=== PATIENT | male | born 1965 | race Caucasian/White ===

== ENCOUNTER 2018-03-24 17:21 | Inpatient (IN) | payer MEDICAID ==
[~2018-03-24] VITALS: Ht 182.9 cm; Wt 101.3 kg
[~2018-03-24 17:21] MED LIST: BENZ1TAB10 PO; BUPR-93 PO; BUSP15 PO; CARB200T6 PO; OLAN10TA3 PO
[2018-03-24 19:41] VITALS: BP 139/93
[2018-03-24] MEDS: BENZTROPINE MESYLATE 1 MG TABLET PO SCH (21:15)
[2018-03-24] MEDS: BuPROPion HCL XL 150 MG ER TABLET PO SCH (21:15)
[2018-03-24] MEDS: BusPIRone HCL 15 MG TABLET PO SCH (21:15)
[2018-03-24] MEDS: OLANZapine 10 MG TABLET PO SCH (21:15)
[2018-03-24] MEDS ORDERED: -PHARMACY VACCINE NOTE- MISC ONE (22:15)
[2018-03-25 06:47] VITALS: BP 132/77
[2018-03-25 08:13] LABS: BASOPHILS % (AUTO) 0.4 % (0.0-2.0); EOSINOPHILS % (AUTO) 1.2 % (1.0-6.0); HEMATOCRIT 38.3 % (41-53); HEMOGLOBIN 13.4 g/dL (13.5-17.5); LYMPHOCYTES # (AUTO) 1.2 K/uL (1.0-4.8); LYMPHOCYTES % (AUTO) 15.5 % (22.0-44.0); MEAN CORPUSCULAR HEMOGLOBIN 32.3 pg (26.0-34.0); MEAN CORPUSCULAR HGB CONC 35.1 G/dL (31.0-37.0); MEAN CORPUSCULAR VOLUME 92 fL (80-100); MONOCYTES # (AUTO) 0.6 K/uL (0.1-1.0); MONOCYTES % (AUTO) 7.9 % (2.0-9.0); NEUTROPHILS # (AUTO) 5.7 K/uL (1.8-7.7); PLATELET COUNT (AUTO) 291 K/uL (150-450); RED BLOOD CELL COUNT(AUTO) 4.17 MIL/uL (4.50-5.90); RED CELL DISTRIBUTION WIDTH 15.6 % (11.5-14.5)
[2018-03-25 08:17] LABS: HEMOGLOBIN A1C 5.4 % (4.5-6.2)
[2018-03-25 08:18] VITALS: BP 124/73
[2018-03-25] MEDS: BusPIRone HCL 15 MG TABLET PO SCH ×2 (08:29→16:45)
[2018-03-25] MEDS: BuPROPion HCL XL 150 MG ER TABLET PO SCH (08:29)
[2018-03-25] MEDS: BENZTROPINE MESYLATE 1 MG TABLET PO SCH (08:29)
[2018-03-25 08:37] LABS: ALANINE AMINOTRANSFERASE 81 U/L (12-78); ALBUMIN 3.2 g/dL (3.4-5.0); ALKALINE PHOSPHATASE 82 U/L (46-116); ANION GAP 14 mmol/L (8-16); ASPARTATE AMINOTRANSFERASE 104 U/L (15-37); BILIRUBIN,TOTAL 1.1 mg/dL (0.1-1.0); CALCIUM, TOTAL 8.8 mg/dL (8.8-10.5); CARBON DIOXIDE 27 mmol/L (22-29); CHLORIDE 93 mmol/L (98-107); CHOL/HDL RATIO 3.9 (4.2-7.3); CHOLESTEROL 193 mg/dL (131-200); CREATININE 0.83 mg/dL (0.60-1.30); GLOMERULAR FILTR. RATE CALC > 60 mL/min (>60); GLUCOSE,RANDOM 84 mg/dL (70-110); HDL CHOLESTEROL 50 mg/dL (40-60); LDL CHOL (CALC.) 128 mg/dL (0-130); SODIUM SERUM 134 mmol/L (136-145); THYROID STIMULATING HORMONE 0.94 uIU/mL (0.36-3.74); TOTAL PROTEIN, SERUM 6.8 g/dL (6.4-8.2); TRIGLYCERIDES 77 mg/dL (15-150); UREA NITROGEN, BLOOD 18 mg/dL (7-18)
[2018-03-25 08:41] LABS: POTASSIUM 2.3 mmol/L (3.5-5.1)
[2018-03-25] MEDS ORDERED: POTASSIUM CHLORIDE 20 MEQ ER TABLET PO ONE ×2 (08:45→17:00)
[2018-03-25 16:36] VITALS: BP 134/87
[2018-03-25] MEDS: LORazepam 2 MG TABLET PO PRN (16:45)
[2018-03-25] MEDS: OLANZapine 10 MG TABLET PO SCH (21:07)
[2018-03-25] MEDS: ZOLPIDEM TARTRATE 10 MG TABLET PO PRN (21:07)
[2018-03-26 04:42] VITALS: BP 131/84
[2018-03-26 08:15] VITALS: BP 113/65
[2018-03-26] MEDS: BusPIRone HCL 15 MG TABLET PO SCH ×2 (08:33→16:47)
[2018-03-26] MEDS: BENZTROPINE MESYLATE 1 MG TABLET PO SCH (08:33)
[2018-03-26] MEDS: BuPROPion HCL XL 150 MG ER TABLET PO SCH (08:33)
[2018-03-26] MEDS: HALOPERIDOL 5 MG TABLET PO PRN ×2 (10:20→16:48)
[2018-03-26] MEDS: LORazepam 2 MG TABLET PO PRN ×2 (10:20→16:48)
[2018-03-26 16:29] VITALS: BP 110/76
[2018-03-26] MEDS: ZOLPIDEM TARTRATE 10 MG TABLET PO PRN (20:21)
[2018-03-26] MEDS: OLANZapine 10 MG TABLET PO SCH (20:21)
[2018-03-27 04:56] VITALS: BP 133/61
[2018-03-27 08:13] VITALS: BP 125/74
[2018-03-27] MEDS: BENZTROPINE MESYLATE 1 MG TABLET PO SCH (09:06)
[2018-03-27] MEDS: BusPIRone HCL 15 MG TABLET PO SCH ×2 (09:07→17:03)
[2018-03-27] MEDS: BuPROPion HCL XL 150 MG ER TABLET PO SCH (09:07)
[2018-03-27] MEDS: LORazepam 2 MG TABLET PO PRN (13:53)
[2018-03-27] MEDS: HALOPERIDOL 5 MG TABLET PO PRN (13:53)
[2018-03-27 16:17] VITALS: BP 145/83
[2018-03-27] MEDS: OLANZapine 10 MG TABLET PO SCH (20:32)
[2018-03-27] MEDS: ZOLPIDEM TARTRATE 10 MG TABLET PO PRN (22:50)
[2018-03-28 04:36] VITALS: BP 145/86
[2018-03-28 08:06] VITALS: BP 134/85
[2018-03-28] MEDS: HALOPERIDOL 5 MG TABLET PO PRN (08:31)
[2018-03-28] MEDS: LORazepam 2 MG TABLET PO PRN ×2 (08:31→16:21)
[2018-03-28] MEDS: BENZTROPINE MESYLATE 1 MG TABLET PO SCH (08:31)
[2018-03-28] MEDS: BusPIRone HCL 15 MG TABLET PO SCH ×2 (08:31→16:21)
[2018-03-28] MEDS: BuPROPion HCL XL 150 MG ER TABLET PO SCH (08:31)
[2018-03-28] MEDS: PALIPERIDONE 3 MG ER TABLET PO SCH (12:34)
[2018-03-28 16:03] VITALS: BP 142/82
[2018-03-28] MEDS: OLANZapine 10 MG TABLET PO SCH (20:24)
[2018-03-28] MEDS: ZOLPIDEM TARTRATE 10 MG TABLET PO PRN (20:24)
[2018-03-29 05:20] VITALS: BP 135/82
[2018-03-29 08:25] VITALS: BP 133/75
[2018-03-29] MEDS: BuPROPion HCL XL 150 MG ER TABLET PO SCH (08:37)
[2018-03-29] MEDS: BusPIRone HCL 15 MG TABLET PO SCH ×2 (08:38→16:30)
[2018-03-29] MEDS: PALIPERIDONE 3 MG ER TABLET PO SCH (08:38)
[2018-03-29] MEDS: LORazepam 2 MG TABLET PO PRN ×3 (12:28→20:31)
[2018-03-29] MEDS: HALOPERIDOL 5 MG TABLET PO PRN ×2 (12:28→16:30)
[2018-03-29 16:43] VITALS: BP 154/87
[2018-03-29] MEDS: OLANZapine 10 MG TABLET PO SCH (20:29)
[2018-03-29] MEDS: ZOLPIDEM TARTRATE 10 MG TABLET PO PRN (20:31)
[2018-03-30 06:33] VITALS: BP 121/78
[2018-03-30 08:12] VITALS: BP 140/76
[2018-03-30] MEDS: PALIPERIDONE 3 MG ER TABLET PO SCH (08:18)
[2018-03-30] MEDS: BusPIRone HCL 15 MG TABLET PO SCH ×2 (08:18→16:58)
[2018-03-30] MEDS: BuPROPion HCL XL 150 MG ER TABLET PO SCH (08:18)
[2018-03-30] MEDS: LORazepam 2 MG TABLET PO PRN ×2 (10:02→16:58)
[2018-03-30] MEDS: HALOPERIDOL 5 MG TABLET PO PRN ×2 (10:02→16:58)
[2018-03-30 16:19] VITALS: BP 126/76
[2018-03-30] MEDS: OLANZapine 10 MG TABLET PO SCH (20:19)
[2018-03-31 05:21] VITALS: BP 122/81
[2018-03-31 08:22] VITALS: BP 123/62
[2018-03-31] MEDS: BuPROPion HCL XL 150 MG ER TABLET PO SCH (08:44)
[2018-03-31] MEDS: BusPIRone HCL 15 MG TABLET PO SCH ×2 (08:44→17:18)
[2018-03-31] MEDS: PALIPERIDONE 3 MG ER TABLET PO SCH (08:44)
[2018-03-31] MEDS: LORazepam 2 MG TABLET PO PRN ×3 (08:45→21:27)
[2018-03-31] MEDS: OLANZapine 7.5 MG TABLET PO SCH ×2 (09:56→17:18)
[2018-03-31 16:09] VITALS: BP 139/95
[2018-03-31] MEDS: ZOLPIDEM TARTRATE 10 MG TABLET PO PRN (21:27)
[2018-03-31 21:31] VITALS: BP 132/88
[2018-04-01 04:02] VITALS: BP 127/78
[2018-04-01 08:14] VITALS: BP 118/80
[2018-04-01] MEDS: BusPIRone HCL 15 MG TABLET PO SCH ×2 (09:05→17:07)
[2018-04-01] MEDS: BuPROPion HCL XL 150 MG ER TABLET PO SCH (09:05)
[2018-04-01] MEDS: LORazepam 2 MG TABLET PO PRN ×4 (09:05→21:12)
[2018-04-01] MEDS: PALIPERIDONE 3 MG ER TABLET PO SCH (09:05)
[2018-04-01] MEDS: OLANZapine 7.5 MG TABLET PO SCH ×2 (09:20→17:07)
[2018-04-01 16:29] VITALS: BP 125/88
[2018-04-01] MEDS: ZOLPIDEM TARTRATE 10 MG TABLET PO PRN (21:12)
[2018-04-02 06:07] VITALS: BP 124/79
[2018-04-02] MEDS: BusPIRone HCL 15 MG TABLET PO SCH ×2 (08:04→17:09)
[2018-04-02] MEDS: PALIPERIDONE 3 MG ER TABLET PO SCH (08:04)
[2018-04-02] MEDS: OLANZapine 7.5 MG TABLET PO SCH ×2 (08:04→17:10)
[2018-04-02] MEDS: BuPROPion HCL XL 150 MG ER TABLET PO SCH (08:04)
[2018-04-02 08:18] VITALS: BP 124/70
[2018-04-02 16:05] VITALS: BP 127/84
[2018-04-02] MEDS: LORazepam 2 MG TABLET PO PRN (17:11)
[2018-04-02] MEDS: ZOLPIDEM TARTRATE 10 MG TABLET PO PRN (23:03)
[2018-04-03 06:28] VITALS: BP 126/82
[2018-04-03] MEDS ORDERED: PALI3 PO (07:55)
[2018-04-03] MEDS ORDERED: OLAN7.5T2 PO (07:56)
[2018-04-03] MEDS: OLANZapine 7.5 MG TABLET PO SCH (08:11)
[2018-04-03] MEDS: BusPIRone HCL 15 MG TABLET PO SCH (08:12)
[2018-04-03] MEDS: BuPROPion HCL XL 150 MG ER TABLET PO SCH (08:12)
[2018-04-03] MEDS: PALIPERIDONE 3 MG ER TABLET PO SCH (08:12)
[2018-04-03 08:27] VITALS: BP 140/77
== END 2018-04-03 10:00 | disposition home or self-care (01) | DRG 750 ==
LOC: B3A 20:16
PROVIDERS: ADMIT Psychiatry & Neurology Psychiatry; ATTEND Psychiatry & Neurology Psychiatry
DX: F25.1 Schizoaffective disorder, depressive type (principal); E78.5 Hyperlipidemia, unspecified; F10.20 Alcohol dependence, uncomplicated; D64.9 Anemia, unspecified; F19.90 Other psychoactive substance use, unspecified, uncomplicated; Z79.899 Other long term (current) drug therapy; Z88.0 Allergy status to penicillin
CPT/HCPCS: 83036; 84132; 84439; 84443

== ENCOUNTER 2021-05-30 03:27 | Inpatient (IN) | payer MEDICAID ==
[~2021-05-30] VITALS: Ht 182.9 cm; Wt 119.3 kg
[~2021-05-30 03:27] MED LIST changes: -BENZ1TAB10 PO; -CARB200T6 PO; -OLAN10TA3 PO; +OLAN7.5T22 PO; +PALI3TAB14 PO
[2021-05-30] MEDS ORDERED: BENZ1TAB10 PO (04:50)
[2021-05-30] MEDS ORDERED: OLAN10TA74 PO (13:44)
[2021-05-31 01:13] VITALS: BP 112/84
[2021-05-31] MEDS: ZOLPIDEM TARTRATE 10 MG TABLET PO PRN (01:41)
[2021-05-31] MEDS ORDERED: PNEUMOCOCCAL VACCINE POLYVALENT 0.5 ML VIAL [PPSV23] IM. ONE (04:30)
[2021-05-31] MEDS ORDERED: LOPERAMIDE HCL 2 MG CAPSULE PO PRN (07:15)
[2021-05-31] MEDS ORDERED: DOCUSATE SODIUM 100 MG CAPSULE PO PRN (07:15)
[2021-05-31] MEDS ORDERED: CloNIDine HCL 0.1 MG TABLET PO PRN (07:15)
[2021-05-31] MEDS ORDERED: NICOTINE 14 MG/24 HOUR PATCH TD PRN (07:15)
[2021-05-31] MEDS ORDERED: GuaiFENesin/D-METHORPHAN [SUGAR-FREE] 200-20MG/10 ML SYRUP UDCUP PO PRN (07:15)
[2021-05-31] MEDS ORDERED: MAG HYDROX/AL HYDROX/SIMETH ES 30 ML SUSPENSION UDCUP PO PRN (07:15)
[2021-05-31] MEDS ORDERED: PETROLATUM,WHITE 28 GM JELLY TP PRN (07:15)
[2021-05-31] MEDS ORDERED: IBUPROFEN 400 MG TABLET PO PRN (07:15)
[2021-05-31] MEDS ORDERED: MAGNESIUM HYDROXIDE SUSPENSION 30 ML UDCUP PO PRN (07:15)
[2021-05-31] MEDS ORDERED: ALBUTEROL SULFATE HFA 90 MCG/PUFF 8 GM INHALER IH PRN (07:15)
[2021-05-31] MEDS ORDERED: ACETAMINOPHEN 325 MG TABLET PO PRN (07:15)
[2021-05-31] MEDS ORDERED: ONDANSETRON HCL 4 MG TABLET PO PRN (07:15)
[2021-05-31 09:13] VITALS: BP 130/86
[2021-05-31] MEDS: BusPIRone HCL 15 MG TABLET PO SCH ×2 (10:45→16:59)
[2021-05-31] MEDS: BuPROPion HCL XL 150 MG ER TABLET PO SCH (10:45)
[2021-05-31 16:40] VITALS: BP 107/65
[2021-05-31] MEDS: BENZTROPINE MESYLATE 1 MG TABLET PO SCH (20:28)
[2021-05-31] MEDS: LORazepam 2 MG TABLET PO PRN (20:29)
[2021-05-31] MEDS: OLANZapine 10 MG TABLET PO SCH (20:29)
[2021-06-01 02:30] VITALS: BP 110/68
[2021-06-01] MEDS: BuPROPion HCL XL 150 MG ER TABLET PO SCH (08:03)
[2021-06-01] MEDS: BusPIRone HCL 15 MG TABLET PO SCH ×2 (08:03→16:03)
[2021-06-01 08:26] LABS: CHOL/HDL RATIO 4.8 (4.2-7.3); CHOLESTEROL 172 mg/dL (131-200); FREE T4 (FREE THYROXINE) 1.21 ng/dL (0.76-1.46); HCG,QUANTITATIVE < 1 mIU/mL (0-6); HDL CHOLESTEROL 36 mg/dL (40-60); LDL CHOL (CALC.) 101 mg/dL (0-130); TRIGLYCERIDES 175 mg/dL (15-150)
[2021-06-01 08:33] VITALS: BP 113/77
[2021-06-01 08:36] LABS: HEMOGLOBIN A1C 5.8 % (3.8-5.6)
[2021-06-01 16:22] VITALS: BP 121/76
[2021-06-01] MEDS: BENZTROPINE MESYLATE 1 MG TABLET PO SCH (20:30)
[2021-06-01] MEDS: OLANZapine 10 MG TABLET PO SCH (20:30)
[2021-06-01] MEDS: ZOLPIDEM TARTRATE 10 MG TABLET PO PRN (20:30)
[2021-06-02 00:44] VITALS: BP 148/79
[2021-06-02] MEDS ORDERED: LORazepam 2 MG/ML VIAL ONE (08:42)
[2021-06-02] MEDS ORDERED: DiphenhydrAMINE HCL 50 MG/ML VIAL ONE (08:42)
[2021-06-02] MEDS ORDERED: HALOPERIDOL LACTATE 5 MG/ML VIAL ONE (08:42)
[2021-06-02] MEDS: BuPROPion HCL XL 150 MG ER TABLET PO SCH (08:47)
[2021-06-02] MEDS: BusPIRone HCL 15 MG TABLET PO SCH ×2 (08:47→16:32)
[2021-06-02] MEDS ORDERED: HALOPERIDOL LACTATE 5 MG/ML VIAL IM ONE ×2 (09:00→15:45)
[2021-06-02] MEDS ORDERED: DiphenhydrAMINE HCL 50 MG/ML VIAL IM ONE ×2 (09:00→15:45)
[2021-06-02] MEDS ORDERED: LORazepam 2 MG/ML VIAL IM ONE ×2 (09:00→15:45)
[2021-06-02 10:50] VITALS: BP 136/75
[2021-06-02] MEDS: ZOLPIDEM TARTRATE 10 MG TABLET PO PRN (20:12)
[2021-06-02] MEDS: LORazepam 2 MG TABLET PO PRN (20:12)
[2021-06-02] MEDS: OLANZapine 10 MG TABLET PO SCH (20:12)
[2021-06-02] MEDS: BENZTROPINE MESYLATE 1 MG TABLET PO SCH (20:12)
[2021-06-02] MEDS: HALOPERIDOL 5 MG TABLET PO PRN (21:28)
[2021-06-03 01:14] VITALS: BP 128/77
[2021-06-03 08:46] VITALS: BP 139/90
[2021-06-03] MEDS: LORazepam 2 MG TABLET PO PRN ×2 (09:35→17:39)
[2021-06-03] MEDS: BuPROPion HCL XL 150 MG ER TABLET PO SCH (09:37)
[2021-06-03] MEDS: BusPIRone HCL 15 MG TABLET PO SCH ×2 (09:37→17:39)
[2021-06-03] MEDS: OLANZapine 10 MG TABLET PO SCH ×2 (09:37→20:50)
[2021-06-03] MEDS ORDERED: LORazepam 2 MG/ML VIAL ONE (12:29)
[2021-06-03] MEDS ORDERED: HALOPERIDOL LACTATE 5 MG/ML VIAL ONE (12:30)
[2021-06-03] MEDS ORDERED: DiphenhydrAMINE HCL 50 MG/ML VIAL ONE (12:30)
[2021-06-03] MEDS ORDERED: HALOPERIDOL LACTATE 5 MG/ML VIAL IM ONE (14:45)
[2021-06-03] MEDS ORDERED: DiphenhydrAMINE HCL 50 MG/ML VIAL IM ONE (14:45)
[2021-06-03] MEDS ORDERED: LORazepam 2 MG/ML VIAL IM ONE (14:45)
[2021-06-03 16:22] VITALS: BP 128/85
[2021-06-03] MEDS: HALOPERIDOL 5 MG TABLET PO PRN (17:39)
[2021-06-03] MEDS: BENZTROPINE MESYLATE 1 MG TABLET PO SCH (20:50)
[2021-06-03] MEDS: ZOLPIDEM TARTRATE 10 MG TABLET PO PRN (20:50)
[2021-06-04 02:32] VITALS: BP 119/82
[2021-06-04] MEDS: LORazepam 2 MG TABLET PO PRN ×3 (02:34→16:39)
[2021-06-04 09:41] VITALS: BP 115/68
[2021-06-04] MEDS: BuPROPion HCL XL 150 MG ER TABLET PO SCH (09:44)
[2021-06-04] MEDS: BusPIRone HCL 15 MG TABLET PO SCH ×2 (09:44→16:38)
[2021-06-04] MEDS: OLANZapine 10 MG TABLET PO SCH ×2 (09:45→20:18)
[2021-06-04] MEDS: HALOPERIDOL 5 MG TABLET PO PRN (10:12)
[2021-06-04 16:13] VITALS: BP 125/79
[2021-06-04] MEDS: BENZTROPINE MESYLATE 1 MG TABLET PO SCH (20:18)
[2021-06-04] MEDS: ZOLPIDEM TARTRATE 10 MG TABLET PO PRN (20:21)
[2021-06-05 00:23] VITALS: BP 136/84
[2021-06-05 08:35] VITALS: BP 124/78
[2021-06-05] MEDS: BusPIRone HCL 15 MG TABLET PO SCH ×2 (08:46→16:24)
[2021-06-05] MEDS: OLANZapine 10 MG TABLET PO SCH ×2 (08:46→20:35)
[2021-06-05] MEDS: BuPROPion HCL XL 150 MG ER TABLET PO SCH (08:46)
[2021-06-05] MEDS: LORazepam 2 MG TABLET PO PRN ×3 (08:47→20:35)
[2021-06-05] MEDS: HALOPERIDOL 5 MG TABLET PO PRN (16:24)
[2021-06-05 16:34] VITALS: BP 114/70
[2021-06-05] MEDS: ZOLPIDEM TARTRATE 10 MG TABLET PO PRN (20:35)
[2021-06-05] MEDS: BENZTROPINE MESYLATE 1 MG TABLET PO SCH (20:35)
[2021-06-06 03:03] VITALS: BP 127/76
[2021-06-06 08:31] VITALS: BP 120/74
[2021-06-06] MEDS: BuPROPion HCL XL 150 MG ER TABLET PO SCH (08:46)
[2021-06-06] MEDS: OLANZapine 10 MG TABLET PO SCH ×2 (08:47→20:51)
[2021-06-06] MEDS: BusPIRone HCL 15 MG TABLET PO SCH ×2 (08:47→16:32)
[2021-06-06] MEDS: LORazepam 2 MG TABLET PO PRN ×2 (08:47→16:32)
[2021-06-06 16:16] VITALS: BP 122/78
[2021-06-06] MEDS: HALOPERIDOL 5 MG TABLET PO PRN (16:32)
[2021-06-06] MEDS: ZOLPIDEM TARTRATE 10 MG TABLET PO PRN (20:51)
[2021-06-06] MEDS: BENZTROPINE MESYLATE 1 MG TABLET PO SCH (20:51)
[2021-06-07 02:23] VITALS: BP 118/80
[2021-06-07 08:32] VITALS: BP 134/80
[2021-06-07] MEDS: BusPIRone HCL 15 MG TABLET PO SCH ×2 (09:08→16:33)
[2021-06-07] MEDS: BuPROPion HCL XL 150 MG ER TABLET PO SCH (09:08)
[2021-06-07] MEDS: LORazepam 2 MG TABLET PO PRN ×2 (09:13→16:33)
[2021-06-07] MEDS ORDERED: OLANZapine 5 MG TABLET PO ONE (09:15)
[2021-06-07] MEDS ORDERED: DiphenhydrAMINE HCL 50 MG/ML VIAL IM ONE (10:30)
[2021-06-07] MEDS ORDERED: LORazepam 2 MG/ML VIAL IM ONE (10:30)
[2021-06-07] MEDS ORDERED: HALOPERIDOL LACTATE 5 MG/ML VIAL IM ONE (10:30)
[2021-06-07] MEDS: HALOPERIDOL 5 MG TABLET PO PRN (16:33)
[2021-06-07 17:36] VITALS: BP 124/86
[2021-06-07] MEDS: ZOLPIDEM TARTRATE 10 MG TABLET PO PRN (20:20)
[2021-06-07] MEDS: BENZTROPINE MESYLATE 1 MG TABLET PO SCH (20:20)
[2021-06-07] MEDS: OLANZapine 7.5 MG TABLET PO SCH (20:20)
[2021-06-08 00:28] VITALS: BP 132/94
[2021-06-08] MEDS: BuPROPion HCL XL 150 MG ER TABLET PO SCH (08:44)
[2021-06-08] MEDS: CEPHALEXIN MONOHYDRATE 500 MG CAPSULE PO SCH ×3 (08:44→16:22)
[2021-06-08] MEDS: OLANZapine 7.5 MG TABLET PO SCH ×2 (08:44→20:23)
[2021-06-08] MEDS: BusPIRone HCL 15 MG TABLET PO SCH ×2 (08:44→16:22)
[2021-06-08] MEDS: LORazepam 2 MG TABLET PO PRN ×2 (08:44→16:22)
[2021-06-08] MEDS: HALOPERIDOL 5 MG TABLET PO PRN ×2 (08:44→16:22)
[2021-06-08] MEDS: NEOMYCIN/BACITRACIN/POLYMYXIN B 30 GM OINTMENT TP SCH ×2 (08:45→16:22)
[2021-06-08 10:05] VITALS: BP 113/80
[2021-06-08 16:33] VITALS: BP 116/72
[2021-06-08] MEDS: BENZTROPINE MESYLATE 1 MG TABLET PO SCH (20:23)
[2021-06-08] MEDS: ZOLPIDEM TARTRATE 10 MG TABLET PO PRN (20:23)
[2021-06-09 00:14] VITALS: BP 132/88
[2021-06-09] MEDS ORDERED: LORazepam 2 MG/ML VIAL ONE (07:13)
[2021-06-09] MEDS ORDERED: DiphenhydrAMINE HCL 50 MG/ML VIAL ONE (07:13)
[2021-06-09] MEDS ORDERED: HALOPERIDOL LACTATE 5 MG/ML VIAL ONE (07:13)
[2021-06-09 08:20] VITALS: BP 130/85
[2021-06-09] MEDS: BuPROPion HCL XL 150 MG ER TABLET PO SCH (09:03)
[2021-06-09] MEDS: OLANZapine 7.5 MG TABLET PO SCH ×2 (09:03→20:30)
[2021-06-09] MEDS: CEPHALEXIN MONOHYDRATE 500 MG CAPSULE PO SCH ×3 (09:03→16:46)
[2021-06-09] MEDS: BusPIRone HCL 15 MG TABLET PO SCH ×2 (09:03→16:46)
[2021-06-09] MEDS: NEOMYCIN/BACITRACIN/POLYMYXIN B 30 GM OINTMENT TP SCH ×2 (09:04→17:07)
[2021-06-09] MEDS: LORazepam 2 MG TABLET PO PRN (12:44)
[2021-06-09 16:16] VITALS: BP 128/78
[2021-06-09] MEDS: ZOLPIDEM TARTRATE 10 MG TABLET PO PRN (20:31)
[2021-06-09] MEDS: BENZTROPINE MESYLATE 1 MG TABLET PO SCH (20:31)
[2021-06-10 05:06] VITALS: BP 126/82
[2021-06-10] MEDS: LORazepam 2 MG TABLET PO PRN ×2 (08:30→13:19)
[2021-06-10] MEDS: HALOPERIDOL 5 MG TABLET PO PRN ×2 (08:30→13:19)
[2021-06-10] MEDS: BuPROPion HCL XL 150 MG ER TABLET PO SCH (08:30)
[2021-06-10] MEDS: OLANZapine 7.5 MG TABLET PO SCH ×2 (08:30→21:07)
[2021-06-10] MEDS: BusPIRone HCL 15 MG TABLET PO SCH ×2 (08:30→16:28)
[2021-06-10] MEDS: CEPHALEXIN MONOHYDRATE 500 MG CAPSULE PO SCH ×3 (08:30→16:28)
[2021-06-10] MEDS: NEOMYCIN/BACITRACIN/POLYMYXIN B 30 GM OINTMENT TP SCH ×2 (09:01→16:29)
[2021-06-10 09:30] VITALS: BP 126/83
[2021-06-10 16:13] VITALS: BP 119/71
[2021-06-10] MEDS ORDERED: LORazepam 2 MG/ML VIAL ONE (16:38)
[2021-06-10] MEDS ORDERED: HALOPERIDOL LACTATE 5 MG/ML VIAL ONE (16:38)
[2021-06-10] MEDS ORDERED: DiphenhydrAMINE HCL 50 MG/ML VIAL ONE (16:38)
[2021-06-10] MEDS ORDERED: HALOPERIDOL LACTATE 5 MG/ML VIAL IM ONE (16:45)
[2021-06-10] MEDS ORDERED: DiphenhydrAMINE HCL 50 MG/ML VIAL IM ONE (16:45)
[2021-06-10] MEDS ORDERED: LORazepam 2 MG/ML VIAL IM ONE (16:45)
[2021-06-10] MEDS: BENZTROPINE MESYLATE 1 MG TABLET PO SCH (21:07)
[2021-06-10] MEDS: ZOLPIDEM TARTRATE 10 MG TABLET PO PRN (21:07)
[2021-06-11 01:57] VITALS: BP 128/82
[2021-06-11] MEDS: BuPROPion HCL XL 150 MG ER TABLET PO SCH (08:43)
[2021-06-11] MEDS: CEPHALEXIN MONOHYDRATE 500 MG CAPSULE PO SCH ×3 (08:43→16:08)
[2021-06-11] MEDS: BusPIRone HCL 15 MG TABLET PO SCH ×2 (08:43→16:08)
[2021-06-11] MEDS: OLANZapine 7.5 MG TABLET PO SCH ×2 (08:43→20:30)
[2021-06-11] MEDS: NEOMYCIN/BACITRACIN/POLYMYXIN B 30 GM OINTMENT TP SCH ×2 (08:44→16:08)
[2021-06-11 10:37] VITALS: BP 121/68
[2021-06-11 10:51] VITALS: BP 119/79
[2021-06-11] MEDS: LORazepam 2 MG TABLET PO PRN ×2 (16:08→20:30)
[2021-06-11] MEDS: HALOPERIDOL 5 MG TABLET PO PRN (16:08)
[2021-06-11 16:24] VITALS: BP 120/64
[2021-06-11] MEDS: ZOLPIDEM TARTRATE 10 MG TABLET PO PRN (20:30)
[2021-06-11] MEDS: BENZTROPINE MESYLATE 1 MG TABLET PO SCH (20:30)
[2021-06-12 00:22] VITALS: BP 123/76
[2021-06-12 08:37] VITALS: BP 130/90
[2021-06-12] MEDS: NEOMYCIN/BACITRACIN/POLYMYXIN B 30 GM OINTMENT TP SCH ×3 (09:00→17:17)
[2021-06-12] MEDS: OLANZapine 7.5 MG TABLET PO SCH ×2 (09:12→20:36)
[2021-06-12] MEDS: CEPHALEXIN MONOHYDRATE 500 MG CAPSULE PO SCH ×3 (09:12→17:17)
[2021-06-12] MEDS: BuPROPion HCL XL 150 MG ER TABLET PO SCH (09:13)
[2021-06-12] MEDS: BusPIRone HCL 15 MG TABLET PO SCH ×2 (09:13→16:06)
[2021-06-12] MEDS: LORazepam 2 MG TABLET PO PRN ×2 (11:51→16:06)
[2021-06-12] MEDS: HALOPERIDOL 5 MG TABLET PO PRN ×2 (11:52→16:06)
[2021-06-12 16:48] VITALS: BP 103/70
[2021-06-12] MEDS: BENZTROPINE MESYLATE 1 MG TABLET PO SCH (20:36)
[2021-06-13] MEDS: LORazepam 2 MG TABLET PO PRN ×2 (00:35→17:04)
[2021-06-13] MEDS: ZOLPIDEM TARTRATE 10 MG TABLET PO PRN ×2 (00:35→20:49)
[2021-06-13 00:36] VITALS: BP 126/85
[2021-06-13] MEDS: BusPIRone HCL 15 MG TABLET PO SCH ×2 (09:16→17:04)
[2021-06-13] MEDS: CEPHALEXIN MONOHYDRATE 500 MG CAPSULE PO SCH ×3 (09:16→17:04)
[2021-06-13] MEDS: BuPROPion HCL XL 150 MG ER TABLET PO SCH (09:16)
[2021-06-13] MEDS: NEOMYCIN/BACITRACIN/POLYMYXIN B 30 GM OINTMENT TP SCH (09:30)
[2021-06-13 10:01] VITALS: BP 136/79
[2021-06-13 16:40] VITALS: BP 112/70
[2021-06-13] MEDS: HALOPERIDOL 5 MG TABLET PO PRN (17:04)
[2021-06-13] MEDS: OLANZapine 10 MG TABLET PO SCH (20:49)
[2021-06-13] MEDS: BENZTROPINE MESYLATE 1 MG TABLET PO SCH (20:49)
[2021-06-14 01:05] VITALS: BP 109/75
[2021-06-14] MEDS: HALOPERIDOL 5 MG TABLET PO PRN ×2 (08:20→16:50)
[2021-06-14] MEDS: LORazepam 2 MG TABLET PO PRN ×2 (08:20→16:50)
[2021-06-14] MEDS: OLANZapine 10 MG TABLET PO SCH ×2 (08:44→20:15)
[2021-06-14] MEDS: CEPHALEXIN MONOHYDRATE 500 MG CAPSULE PO SCH ×3 (08:44→16:47)
[2021-06-14] MEDS: BusPIRone HCL 15 MG TABLET PO SCH ×2 (08:44→16:47)
[2021-06-14] MEDS: BuPROPion HCL XL 150 MG ER TABLET PO SCH (08:44)
[2021-06-14] MEDS: NEOMYCIN/BACITRACIN/POLYMYXIN B 30 GM OINTMENT TP SCH ×2 (08:45→16:49)
[2021-06-14 09:19] VITALS: BP 107/71
[2021-06-14 16:20] VITALS: BP 124/70
[2021-06-14] MEDS: BENZTROPINE MESYLATE 1 MG TABLET PO SCH (20:15)
[2021-06-14] MEDS: ZOLPIDEM TARTRATE 10 MG TABLET PO PRN (20:15)
[2021-06-15 05:19] VITALS: BP 112/72
[2021-06-15] MEDS: HALOPERIDOL 5 MG TABLET PO PRN ×2 (08:30→16:30)
[2021-06-15] MEDS: LORazepam 2 MG TABLET PO PRN ×3 (08:30→20:31)
[2021-06-15] MEDS: OLANZapine 10 MG TABLET PO SCH ×2 (08:43→20:02)
[2021-06-15] MEDS: BuPROPion HCL XL 150 MG ER TABLET PO SCH (08:43)
[2021-06-15] MEDS: BusPIRone HCL 15 MG TABLET PO SCH ×2 (08:43→16:30)
[2021-06-15 16:17] VITALS: BP 102/71
[2021-06-15] MEDS: BENZTROPINE MESYLATE 1 MG TABLET PO SCH (20:02)
[2021-06-15] MEDS: ZOLPIDEM TARTRATE 10 MG TABLET PO PRN (20:02)
[2021-06-16 00:25] VITALS: BP 118/72
[2021-06-16] MEDS: BusPIRone HCL 15 MG TABLET PO SCH ×2 (08:54→16:21)
[2021-06-16] MEDS: BuPROPion HCL XL 150 MG ER TABLET PO SCH (08:54)
[2021-06-16] MEDS: LORazepam 2 MG TABLET PO PRN ×3 (08:54→20:44)
[2021-06-16] MEDS: OLANZapine 10 MG TABLET PO SCH ×2 (08:54→20:44)
[2021-06-16] MEDS: HALOPERIDOL 5 MG TABLET PO PRN (16:22)
[2021-06-16 16:39] VITALS: BP 111/63
[2021-06-16] MEDS: BENZTROPINE MESYLATE 1 MG TABLET PO SCH (20:44)
[2021-06-16] MEDS: ZOLPIDEM TARTRATE 10 MG TABLET PO PRN (20:44)
[2021-06-17 02:34] VITALS: BP 110/70
[2021-06-17 08:35] VITALS: BP 146/86
[2021-06-17] MEDS: BuPROPion HCL XL 150 MG ER TABLET PO SCH (08:58)
[2021-06-17] MEDS: BusPIRone HCL 15 MG TABLET PO SCH ×2 (08:58→18:03)
[2021-06-17] MEDS: LORazepam 2 MG TABLET PO PRN ×2 (08:58→18:08)
[2021-06-17] MEDS: OLANZapine 10 MG TABLET PO SCH ×2 (08:58→20:17)
[2021-06-17 16:21] VITALS: BP 120/70
[2021-06-17] MEDS: BENZTROPINE MESYLATE 1 MG TABLET PO SCH (20:17)
[2021-06-17] MEDS: ZOLPIDEM TARTRATE 10 MG TABLET PO PRN (21:27)
[2021-06-18 00:25] VITALS: BP 112/65
[2021-06-18] MEDS: HALOPERIDOL 5 MG TABLET PO PRN ×2 (08:30→20:08)
[2021-06-18] MEDS: LORazepam 2 MG TABLET PO PRN ×2 (08:30→20:07)
[2021-06-18] MEDS: BusPIRone HCL 15 MG TABLET PO SCH ×2 (08:51→17:18)
[2021-06-18] MEDS: OLANZapine 10 MG TABLET PO SCH ×2 (08:51→20:04)
[2021-06-18] MEDS: BuPROPion HCL XL 150 MG ER TABLET PO SCH (08:51)
[2021-06-18 16:23] VITALS: BP 115/60
[2021-06-18] MEDS: BENZTROPINE MESYLATE 1 MG TABLET PO SCH (20:04)
[2021-06-18] MEDS: ZOLPIDEM TARTRATE 10 MG TABLET PO PRN (20:07)
[2021-06-19 01:11] VITALS: BP 100/71
[2021-06-19] MEDS: LORazepam 2 MG TABLET PO PRN ×4 (01:14→20:29)
[2021-06-19] MEDS: HALOPERIDOL 5 MG TABLET PO PRN ×2 (01:14→16:28)
[2021-06-19 08:12] VITALS: BP 122/74
[2021-06-19] MEDS: BuPROPion HCL XL 150 MG ER TABLET PO SCH (09:31)
[2021-06-19] MEDS: OLANZapine 10 MG TABLET PO SCH ×2 (09:32→20:29)
[2021-06-19] MEDS: BusPIRone HCL 15 MG TABLET PO SCH ×2 (09:32→16:28)
[2021-06-19 16:22] VITALS: BP 120/81
[2021-06-19] MEDS: BENZTROPINE MESYLATE 1 MG TABLET PO SCH (20:29)
[2021-06-19] MEDS: ZOLPIDEM TARTRATE 10 MG TABLET PO PRN (20:29)
[2021-06-20 03:22] VITALS: BP 120/87
[2021-06-20 08:59] VITALS: BP 98/67
[2021-06-20] MEDS: OLANZapine 10 MG TABLET PO SCH ×2 (09:02→20:49)
[2021-06-20] MEDS: BuPROPion HCL XL 150 MG ER TABLET PO SCH (09:02)
[2021-06-20] MEDS: BusPIRone HCL 15 MG TABLET PO SCH ×2 (09:02→17:02)
[2021-06-20] MEDS: HALOPERIDOL 5 MG TABLET PO PRN (14:09)
[2021-06-20] MEDS: LORazepam 2 MG TABLET PO PRN (14:09)
[2021-06-20 16:23] VITALS: BP 101/65
[2021-06-20] MEDS: BENZTROPINE MESYLATE 1 MG TABLET PO SCH (20:49)
[2021-06-20] MEDS: ZOLPIDEM TARTRATE 10 MG TABLET PO PRN (20:49)
[2021-06-21 01:27] VITALS: BP 123/81
[2021-06-21 08:40] VITALS: BP 124/70
[2021-06-21] MEDS: BuPROPion HCL XL 150 MG ER TABLET PO SCH (09:16)
[2021-06-21] MEDS: OLANZapine 10 MG TABLET PO SCH ×2 (09:16→20:42)
[2021-06-21] MEDS: BusPIRone HCL 15 MG TABLET PO SCH ×2 (09:16→16:39)
[2021-06-21] MEDS: LORazepam 2 MG TABLET PO PRN (09:17)
[2021-06-21 17:39] VITALS: BP 122/84
[2021-06-21] MEDS: ZOLPIDEM TARTRATE 10 MG TABLET PO PRN (20:42)
[2021-06-21] MEDS: BENZTROPINE MESYLATE 1 MG TABLET PO SCH (20:42)
[2021-06-22 00:21] VITALS: BP 121/95
[2021-06-22] MEDS: OLANZapine 10 MG TABLET PO SCH ×2 (09:07→20:40)
[2021-06-22] MEDS: BuPROPion HCL XL 150 MG ER TABLET PO SCH (09:07)
[2021-06-22] MEDS: LORazepam 2 MG TABLET PO PRN (09:07)
[2021-06-22] MEDS: BusPIRone HCL 15 MG TABLET PO SCH ×2 (09:07→17:07)
[2021-06-22 09:46] VITALS: BP 113/74
[2021-06-22 17:44] VITALS: BP 130/83
[2021-06-22] MEDS: ZOLPIDEM TARTRATE 10 MG TABLET PO PRN (20:40)
[2021-06-22] MEDS: BENZTROPINE MESYLATE 1 MG TABLET PO SCH (20:40)
[2021-06-23 05:48] VITALS: BP 124/76
[2021-06-23 08:08] VITALS: BP 100/58
[2021-06-23] MEDS: BusPIRone HCL 15 MG TABLET PO SCH ×2 (09:10→17:01)
[2021-06-23] MEDS: OLANZapine 10 MG TABLET PO SCH ×2 (09:10→20:19)
[2021-06-23] MEDS: BuPROPion HCL XL 150 MG ER TABLET PO SCH (09:10)
[2021-06-23] MEDS: HALOPERIDOL 5 MG TABLET PO PRN ×2 (09:16→17:01)
[2021-06-23] MEDS: LORazepam 2 MG TABLET PO PRN ×2 (09:17→17:01)
[2021-06-23 16:31] VITALS: BP 110/65
[2021-06-23] MEDS: BENZTROPINE MESYLATE 1 MG TABLET PO SCH (20:19)
[2021-06-23] MEDS: ZOLPIDEM TARTRATE 10 MG TABLET PO PRN (20:19)
[2021-06-24 00:31] VITALS: BP 119/79
[2021-06-24 08:39] VITALS: BP 101/65
[2021-06-24] MEDS: BuPROPion HCL XL 150 MG ER TABLET PO SCH (09:27)
[2021-06-24] MEDS: BusPIRone HCL 15 MG TABLET PO SCH ×2 (09:27→16:36)
[2021-06-24] MEDS: OLANZapine 10 MG TABLET PO SCH ×2 (09:27→20:35)
[2021-06-24 16:25] VITALS: BP 124/63
[2021-06-24] MEDS: HALOPERIDOL 5 MG TABLET PO PRN (16:36)
[2021-06-24] MEDS: LORazepam 2 MG TABLET PO PRN (16:36)
[2021-06-24] MEDS: ZOLPIDEM TARTRATE 10 MG TABLET PO PRN (20:35)
[2021-06-24] MEDS: BENZTROPINE MESYLATE 1 MG TABLET PO SCH (20:35)
[2021-06-25 01:11] VITALS: BP 128/87
[2021-06-25 07:27] LABS: COVID AG,FIA SOURCE NASOPHARYNGEAL
[2021-06-25] MEDS: BusPIRone HCL 15 MG TABLET PO SCH ×2 (08:51→16:27)
[2021-06-25] MEDS: BuPROPion HCL XL 150 MG ER TABLET PO SCH (08:51)
[2021-06-25] MEDS: OLANZapine 10 MG TABLET PO SCH ×2 (08:52→20:11)
[2021-06-25 09:14] VITALS: BP 107/79
[2021-06-25 16:27] VITALS: BP 106/70
[2021-06-25] MEDS: HALOPERIDOL 5 MG TABLET PO PRN (16:27)
[2021-06-25] MEDS: LORazepam 2 MG TABLET PO PRN (16:27)
[2021-06-25] MEDS: ZOLPIDEM TARTRATE 10 MG TABLET PO PRN (20:11)
[2021-06-25] MEDS: BENZTROPINE MESYLATE 1 MG TABLET PO SCH (20:11)
[2021-06-26 01:12] VITALS: BP 117/76
[2021-06-26 08:23] VITALS: BP 118/77
[2021-06-26] MEDS: BusPIRone HCL 15 MG TABLET PO SCH (08:23)
[2021-06-26] MEDS: BuPROPion HCL XL 150 MG ER TABLET PO SCH (08:23)
[2021-06-26] MEDS: OLANZapine 10 MG TABLET PO SCH (08:23)
== END 2021-06-26 12:45 | disposition home or self-care (01) | DRG 750 ==
LOC: B3A 20:13
DX: F25.0 Schizoaffective disorder, bipolar type (principal); R45.851 Suicidal ideations; E11.9 Type 2 diabetes mellitus without complications; H54.61 Unqualified visual loss, right eye, normal vision left eye; I10 Essential (primary) hypertension; Z59.0 Homelessness; Z79.899 Other long term (current) drug therapy; E78.00 Pure hypercholesterolemia, unspecified; E78.5 Hyperlipidemia, unspecified; F10.10 Alcohol abuse, uncomplicated; F15.10 Other stimulant abuse, uncomplicated; F17.200 Nicotine dependence, unspecified, uncomplicated; Z91.19 Patient's noncompliance with other medical treatment and regimen; Z91.5 Personal history of self-harm; Z20.822 Contact with and (suspected) exposure to COVID-19
CPT/HCPCS: 80061; 83036; 84436; 84439; 84443; 84702; 99285; J1200; J1630; J2060

== ENCOUNTER 2021-05-30 04:22 | Emergency (ER) | payer MEDICAID ==
[~2021-05-30] VITALS: Ht 188 cm; Wt 109.1 kg
[2021-05-30] MEDS ORDERED: BENZ1TAB10 PO (04:50)
[2021-05-30 06:16] LABS: BASOPHILS % (AUTO) 0.7 % (0.0-2.0); EOSINOPHILS % (AUTO) 2.7 % (1.0-6.0); HEMATOCRIT 41.6 % (41-53); HEMOGLOBIN 13.9 g/dL (13.5-17.5); LYMPHOCYTES # (AUTO) 1.7 K/uL (1.0-4.8); MEAN CORPUSCULAR HEMOGLOBIN 29.9 pg (26.0-34.0); MEAN CORPUSCULAR HGB CONC 33.4 G/dL (31.0-37.0); MEAN CORPUSCULAR VOLUME 89 fL (80-100); MONOCYTES # (AUTO) 0.7 K/uL (0.1-1.0); MONOCYTES % (AUTO) 8.5 % (2.0-9.0); NEUTROPHILS # (AUTO) 6.1 K/uL (1.8-7.7); NEUTROPHILS % (AUTO) 69.1 % (40.0-70.0); PLATELET COUNT (AUTO) 248 K/uL (150-450); RED BLOOD CELL COUNT(AUTO) 4.66 MIL/uL (4.50-5.90); RED CELL DISTRIBUTION WIDTH 14.1 % (11.5-14.5)
[2021-05-30 06:17] LABS: COVID AG,FIA SOURCE NASOPHARYNGEAL
[2021-05-30 06:24] LABS: ANION GAP 7 mmol/L (8-16); CARBON DIOXIDE 26 mmol/L (22-29); CHLORIDE 105 mmol/L (98-107); CREATININE 0.96 mg/dL (0.60-1.30); GLOMERULAR FILTR. RATE CALC > 60 mL/min (>60); GLUCOSE,RANDOM 99 mg/dL (70-110); POTASSIUM 3.5 mmol/L (3.5-5.1); SODIUM SERUM 138 mmol/L (136-145); UREA NITROGEN, BLOOD 26 mg/dL (7-18)
[2021-05-30 06:30] LABS: ALANINE AMINOTRANSFERASE 55 U/L (12-78); ALBUMIN 3.5 g/dL (3.4-5.0); ALKALINE PHOSPHATASE 66 U/L (46-116); ASPARTATE AMINOTRANSFERASE 47 U/L (15-37); BILIRUBIN,TOTAL 0.6 mg/dL (0.1-1.0); TOTAL PROTEIN, SERUM 7.3 g/dL (6.4-8.2)
[2021-05-30] MEDS ORDERED: OLANZapine 5 MG TABLET PO ONE (07:30)
[2021-05-30] MEDS ORDERED: BENZTROPINE MESYLATE 1 MG TABLET PO ONE (07:30)
[2021-05-30 08:10] LABS: AMPHET/METH SCREEN,URINE POSITIVE (NEGATIVE); BARBITURATE SCREEN, URINE NEGATIVE (NEGATIVE); BENZODIAZEPINES SCREEN,URINE NEGATIVE (NEGATIVE); CANNABINOID SCREEN,URINE NEGATIVE (NEGATIVE); COCAINE SCREEN,URINE NEGATIVE (NEGATIVE); METHADONE SCREEN, URINE NEGATIVE (NEGATIVE); OPIATE SCREEN,URINE NEGATIVE (NEGATIVE)
[2021-05-30 08:11] LABS: PHENCYCLIDINE SCREEN,URINE NEGATIVE (NEGATIVE)
[2021-05-30] MEDS ORDERED: OLAN10TA74 PO (13:44)
[2021-05-30] MEDS ORDERED: ACETAMINOPHEN 325 MG TABLET PO ONE (13:45)
[2021-05-30 18:30] VITALS: BP 119/80
[2021-05-30] MEDS ORDERED: LORazepam 2 MG TABLET PO PRN (20:15)
[2021-05-30] MEDS ORDERED: ZOLPIDEM TARTRATE 10 MG TABLET PO PRN (20:15)
[2021-05-30] MEDS ORDERED: HALOPERIDOL 5 MG TABLET PO PRN (20:15)
== END 2021-05-30 23:51 | disposition admitted as inpatient to this hospital (09) ==
LOC: EMS 04:24
DX: F25.9 Schizoaffective disorder, unspecified (principal); Z20.822 Contact with and (suspected) exposure to COVID-19
CPT/HCPCS: 36415; 80053; 80307; 85025; 87426; 99285; G0480